=== PATIENT | female | born 1950 | race Caucasian/White ===

== ENCOUNTER 2016-09-30 22:27 | Emergency (ER) | payer SELFPAY ==
[~2016-09-30 22:27] MED LIST: HYDR-3498 PO; IBUP-1542 PO; NO MEDS TAKEN; WHEE1EAC12 MC; [UNRECOGNIZED DRUG - REMARK]
== END 2016-09-30 22:34 | disposition left against medical advice (07) ==
LOC: E/R 22:27
DX: Z53.21 Procedure and treatment not carried out due to patient leaving prior to being seen by health care provider (principal)

== ENCOUNTER 2017-10-07 17:07 | Emergency (ER) | END 2017-10-07 19:48 | disposition left against medical advice (07) ==

== ENCOUNTER 2018-03-13 11:28 | Emergency (ER) | END 2018-03-13 13:57 | disposition home or self-care (01) ==